=== PATIENT | male | born 1980 | race Caucasian/White ===

== ENCOUNTER 2017-10-25 21:32 | Emergency (ER) | payer OTHER ==
[~2017-10-25] VITALS: Ht 182.9 cm; Wt 97.0 kg
[2017-10-25 21:39] VITALS: Ht 182.9 cm; Wt 97.0 kg
[2017-10-25] MEDS ORDERED: LISI-725 PO (21:55)
[2017-10-25] MEDS ORDERED: LEVO25TA5 PO (21:55)
[2017-10-25] MEDS ORDERED: BISM262C6 PO (21:55)
[2017-10-25] MEDS ORDERED: PRLSR20 PO (21:55)
[2017-10-25 22:11] LABS: BASO % 0.1 %; BASO ABS # 0.01 K/uL (0-0.2); COMPLETE YES; EOS % 1.9 %; HEMATOCRIT 42.7 % (42-52); IG% 0.3 %; LYMPH % 24.6 %; LYMPH ABS # 1.84 K/uL (1.2-3.4); MEAN CELL VOLUME 89.1 fL (80-100); MEAN CORPUSCULAR HEMOGLOBIN 30.9 pg (25-34); MEAN CORPUSCULAR HGB CONC 34.7 g/dl (32-36); MEAN PLATELET VOLUME 9.4 fL (7.4-10.4); NEUT % 65.1 %; PLATELET COUNT 209 K/uL (130-400); RED BLOOD COUNT 4.79 M/uL (4.7-6.1); WHITE BLOOD COUNT 7.48 K/uL (4.8-10.8)
[2017-10-25 22:29] LABS: ALT/SGPT 26 U/L (12-78); AST/SGOT 19 U/L (15-37); BLOOD UREA NITROGEN 17 mg/dl (7-18); BUN/CREATININE RATIO 14.6 (10-20); CALCIUM 8.8 mg/dl (8.5-10.1); CARBON DIOXIDE 29 mmol/L (21-32); CHLORIDE 102 mmol/L (98-107); CREATININE 1.14 mg/dl (0.60-1.40); GLUCOSE 86 mg/dl (70-99); POTASSIUM 3.6 mmol/L (3.5-5.1); SODIUM 137 mmol/L (136-145)
--- NOTE | 2017-10-25 22:32 | DIAGNOSTIC IMAGING REPORT ---
CT OF THE HEAD WITHOUT CONTRAST CLINICAL HISTORY: Syncope. Headache. COMPARISON STUDY: No previous studies for comparison. TECHNIQUE: Helical axial images of the head were obtained without IV contrast. Automated exposure control was utilized for the study. A dose lowering technique was utilized adhering to the principles of ALARA. FINDINGS: No acute intracranial hemorrhage, midline shift or mass effect is present. Ventricular system is unremarkable. Basilar cisterns are patent. There are no extra-axial collections. Donahue-white differentiation is maintained. There is no calvarial fracture. There is a possible left temporal scalp contusion. There is an associated punctate radiodensity and a linear radiodensity. These are indeterminate. IMPRESSION: 1. No acute intracranial findings. 2. No calvarial fracture. Possible left temporal scalp contusion with indeterminate punctate and linear scalp radiodensities. These likely reflect calcifications and are likely chronic however tiny foreign bodies could appear similar. Electronically signed by: Fernando Rao M.D. 10/25/2017 10:30 PM Dictated Date/Time: 10/25/2017 10:25 PM
--- NOTE | 2017-10-25 22:35 | DIAGNOSTIC IMAGING REPORT ---
CT OF THE CERVICAL SPINE WITHOUT CONTRAST CLINICAL HISTORY: Syncope. Neck pain. COMPARISON STUDY: No previous studies for comparison. TECHNIQUE: Helical axial images of the cervical spine were obtained without IV contrast. Sagittal and coronal reconstructions were viewed. A dose lowering technique was utilized adhering to the principles of ALARA. FINDINGS: Alignment of the cervical spine is anatomic. The craniocervical junction is intact. There is no acute cervical spine fracture. There is moderate disc space narrowing and osteophytosis at C6-C7. A corticated ossicle along the inferior aspect of the anterior arch of C1 is chronic. There is no prevertebral edema. IMPRESSION: No acute cervical spine fracture or subluxation. Electronically signed by: Fernando Rao M.D. 10/25/2017 10:34 PM Dictated Date/Time: 10/25/2017 10:30 PM
[2017-10-25 22:40] LABS: ALKALINE PHOSPHATASE 58 U/L (45-117)
[2017-10-26 00:45] VITALS: BP 112/75; PULSE 70; TEMP 36.6; O2SAT 97
--- NOTE | 2017-10-26 05:37 | EMERGENCY ROOM VISIT NOTE ---
History First contact with patient: 21:43 Chief Complaint: SYNCOPE Stated Complaint: STATES HE PASSED OUT Nursing Triage Summary: Patient states he was sitting playing cards when he had a syncopal episode. abraision to left eye brow. History of Chrons, HTN and thyroid disease History of Present Illness The patient is a 37 year old male who presents to the Emergency Room with complaints of syncopal episode tonight. Patient states he's been feeling fatigued for the past 2 weeks. Patient states he was just transferred to this skilled nursing system from another one. He states since arriving there he has not been eating well as he does not like the food. Patient states he was playing cards tonight after dinner and then passed out. Patient felt lightheaded and then he passed out and hit his head. He was evaluated by the skilled nursing doctor and sent here. Patient states he has a headache and some neck discomfort. No other medical complaints. Tetanus is current. Patient denies chest pain, dyspnea, fever, chills, cough, congestion, abdominal pain, vomiting, diarrhea, localized weakness. Patient states he like to be checked for hepatitis. Review of Systems See HPI for pertinent positives & negatives. A total of 10 systems reviewed and were otherwise negative. Past Medical/Surgical History Crohn's disease, hepatitis, hypertension, psoriasis Social History Smoking Status: Current Every Day Smoker Drug Use: none Marital Status: single Occupation Status: other (prisoner) Current/Historical Medications Scheduled Bismuth Subsalicylate (Pepto-Bismol), 2 TAB PO TID Levothyroxine Sodium (Levothyroxine Sodium), 25 MCG PO DAILY Lisinopril (Zestril), 20 MG PO DAILY Omeprazole (Prilosec), 20 MG PO DAILY Allergies Coded Allergies: No Known Allergies (Unverified , 10/25/17) Physical Exam Vital Signs Date Time Temp Pulse Resp B/P (MAP) Pulse Ox O2 Delivery O2 Flow Rate FiO2 10/26/17 00:45 36.6 70 18 112/75 97 Room Air 10/26/17 00:18 76 18 126/81 97 Room Air 142/76 139/81 10/25/17 23:41 36.6 75 18 137/76 97 Room Air 10/25/17 22:35 74 10/25/17 22:28 72 18 134/76 97 Room Air 10/25/17 21:54 Room Air 10/25/17 21:54 Room Air 10/25/17 21:39 36.9 75 18 141/84 97 Room Air Physical Exam VITALS: Vitals are noted on the nurse's note and reviewed by myself. Vital signs stable. GENERAL: White male in [facility], in no acute distress, nondiaphoretic, well- developed well-nourished. SKIN: Left eyebrow superficial abrasion and appears clean The rest of the skin was without rashes, erythema, edema, or bruising. There is no tenting of the skin. Capillary reflex less than 2 seconds. HEAD: Normocephalic atraumatic. EARS: External auditory canals clear, tympanic membranes pearly donahue without erythema or effusion bilaterally. EYES: Pupils equal round and reactive to light and accommodation. Conjunctivae without injection, sclerae without icterus. Extraocular movements intact. NOSE: Patent, turbinates without inflammation or discharge. No sinus tenderness. MOUTH: Mucous membranes moist. Pharynx without erythema or exudate. Uvula midline. Airway patent. Tongue does not deviate. NECK: Supple without nuchal rigidity. No lymphadenopathy. No thyromegaly. Cervical spine is nontender. No JVD. HEART: Regular rate and rhythm without murmurs gallops or rubs. LUNGS: Clear to auscultation bilaterally without wheezes, rales or rhonchi. No dullness to percussion. No retractions or accessory muscle use. ABDOMEN: Positive bowel sounds x 4. Normal tympanic percussion. Soft, nontender, without masses or organomegaly. Bright sign negative. No guarding or rebound tenderness. MUSCULOSKELETAL: No muscle atrophy, erythema, or edema noted. No thoracic or lumbar tenderness on exam. 5 out of 5 strength throughout. NEURO: Patient was alert and oriented to person place and time. Normal sensation to light and sharp touch. No focal neurological deficits. Cranial nerves II-12 grossly intact. No pronator drift. Cerebellar exam intact. Medical Decision & Procedures Laboratory Results 10/25/17 22:00 Red Blood Count 4.79, Mean Corpuscular Volume 89.1, Mean Corpuscular Hemoglobin 30.9, Mean Corpuscular Hemoglobin Concent 34.7, Mean Platelet Volume 9.4, Neutrophils (%) (Auto) 65.1, Lymphocytes (%) (Auto) 24.6, Monocytes (%) (Auto) 8.0, Eosinophils (%) (Auto) 1.9, Basophils (%) (Auto) 0.1, Neutrophils # (Auto) 4.87, Lymphocytes # (Auto) 1.84, Monocytes # (Auto) 0.60, Eosinophils # (Auto) 0.14, Basophils # (Auto) 0.01 10/25/17 22:00 Test 10/25/17 22:00 10/26/17 00:07 White Blood Count 7.48 K/uL (4.8-10.8) Red Blood Count 4.79 M/uL (4.7-6.1) Hemoglobin 14.8 g/dL (14.0-18.0) Hematocrit 42.7 % (42-52) Mean Corpuscular Volume 89.1 fL (80-100) Mean Corpuscular Hemoglobin 30.9 pg (25-34) Mean Corpuscular Hemoglobin Concent 34.7 g/dl (32-36) Platelet Count 209 K/uL (130-400) Mean Platelet Volume 9.4 fL (7.4-10.4) Neutrophils (%) (Auto) 65.1 % Lymphocytes (%) (Auto) 24.6 % Monocytes (%) (Auto) 8.0 % Eosinophils (%) (Auto) 1.9 % Basophils (%) (Auto) 0.1 % Neutrophils # (Auto) 4.87 K/uL (1.4-6.5) Lymphocytes # (Auto) 1.84 K/uL (1.2-3.4) Monocytes # (Auto) 0.60 K/uL (0.11-0.59) Eosinophils # (Auto) 0.14 K/uL (0-0.5) Basophils # (Auto) 0.01 K/uL (0-0.2) RDW Standard Deviation 39.3 fL (36.4-46.3) RDW Coefficient of Variation 12.2 % (11.5-14.5) Immature Granulocyte % (Auto) 0.3 % Immature Granulocyte # (Auto) 0.02 K/uL (0.00-0.02) Anion Gap 6.0 mmol/L (3-11) Est Creatinine Clear Calc Drug Dose 106.1 ml/min Estimated GFR () 94.0 Estimated GFR (Non- 81.1 BUN/Creatinine Ratio 14.6 (10-20) Calcium Level 8.8 mg/dl (8.5-10.1) Total Bilirubin 0.4 mg/dl (0.2-1) Direct Bilirubin < 0.1 mg/dl (0-0.2) Aspartate Amino Transf (AST/SGOT) 19 U/L (15-37) Alanine Aminotransferase (ALT/SGPT) 26 U/L (12-78) Alkaline Phosphatase 58 U/L (45-117) Troponin I < 0.015 ng/ml (0-0.045) Total Protein 7.4 gm/dl (6.4-8.2) Albumin 3.9 gm/dl (3.4-5.0) Thyroid Stimulating Hormone (TSH) 6.590 uIu/ml (0.300-4.500) Hepatitis B Surface Antigen NEG (NEG) Hepatitis C Antibody NEG (NEG) Bedside Troponin I < 0.030 ng/ml (0-0.045) ED Course Prior records/ancillary studies reviewed. Triage Nursing notes reviewed. Additional history obtained from correction officers. The patient's history was concerning for syncope. Differential diagnosis: Etiologies such as vasovagal event, infection, hypoglycemia, electrolyte abnormalities, cardiac sources, intracerebral event, toxicologic, neurologic, as well as others were entertained. Physical examination: Patient was alert, interactive and drinking without difficulties ER treatment provided: By mouth fluids and a turkey sandwich On reassessment the patient felt better. Diagnostics interpretation by me: ECG: Normal sinus, normal intervals, no acute ST-T wave changes. Impression normal sinus rhythm interpreted by myself with a poor baseline The labs revealed negative on 2 greater than 2 hours apart. Mildly elevated TSH Imaging studies: CT OF THE HEAD WITHOUT CONTRAST CLINICAL HISTORY: Syncope. Headache. COMPARISON STUDY: No previous studies for comparison. TECHNIQUE: Helical axial images of the head were obtained without IV contrast. Automated exposure control was utilized for the study. A dose lowering technique was utilized adhering to the principles of ALARA. FINDINGS: No acute intracranial hemorrhage, midline shift or mass effect is present. Ventricular system is unremarkable. Basilar cisterns are patent. There are no extra-axial collections. Donahue-white differentiation is maintained. There is no calvarial fracture. There is a possible left temporal scalp contusion. There is an associated punctate radiodensity and a linear radiodensity. These are indeterminate. IMPRESSION: 1. No acute intracranial findings. 2. No calvarial fracture. Possible left temporal scalp contusion with indeterminate punctate and linear scalp radiodensities. These likely reflect calcifications and are likely chronic however tiny foreign bodies could appear similar. CLINICAL HISTORY: Syncope. Neck pain. COMPARISON STUDY: No previous studies for comparison. TECHNIQUE: Helical axial images of the cervical spine were obtained without IV contrast. Sagittal and coronal reconstructions were viewed. A dose lowering technique was utilized adhering to the principles of ALARA. FINDINGS: Alignment of the cervical spine is anatomic. The craniocervical junction is intact. There is no acute cervical spine fracture. There is moderate disc space narrowing and osteophytosis at C6-C7. A corticated ossicle along the inferior aspect of the anterior arch of C1 is chronic. There is no prevertebral edema. IMPRESSION: No acute cervical spine fracture or subluxation. Electronically signed by: Fernando Rao M.D. This appears to be consistent with syncope with mildly elevated TSH. Patient was neurovascularly and neurologically intact. He had an unremarkable workup as above. He is advised to follow-up with skilled nursing doctor in a few days for further evaluation for syncope and is elevated TSH. Patient had a normal EKG. 2 negative troponins. Stable H&H. He was able to ambulate without difficulties. He ate a full meal while in the ER. By the evaluation outlined above emergent etiologies such as infection, hypoglycemia, electrolyte abnormalities, cardiac sources, intracerebral event, toxicologic, neurologic,as well as others were deemed relatively unlikely. The pt informed about the findings as listed above. All questions were answered and pleased with the treatment. Return instructions were outlined and the patient was discharged in stable condition. Case reviewed by attending Referral: The patient was referred back to their primary care physician for follow-up in 2 to 3 days for a recheck of the current condition. Medical Decision As above Impression Primary Impression: Syncope Departure Information Dispostion Home / Self-Care Condition GOOD Referrals Amilcar BATES (PCP) Forms HOME CARE DOCUMENTATION FORM, IMPORTANT VISIT INFORMATION Patient Instructions Syncope, My [employer] Additional Instructions Your thyroid were slightly elevated today. Recheck this with the family care doctor. Rest and drink plenty of fluids as tolerated. Continue current medications. Return to the ER immediately for worsening or persistent syncope, abdominal pain , vomiting, fevers, chest pains, difficulty breathing, worsening of your condition, or as needed. Follow up with your primary physician in 2-3 days for a recheck of your current condition. Problem Qualifiers Primary Impression: Syncope Syncope type: unspecified Qualified Codes: R55 - Syncope and collapse
== END 2017-10-26 00:46 | disposition home or self-care (01) ==
LOC: C.EDB 21:34 → C.EDC 10-26 00:46
DX: R55 Syncope and collapse (principal); K50.90 Crohn's disease, unspecified, without complications; I10 Essential (primary) hypertension; L40.9 Psoriasis, unspecified; K75.9 Inflammatory liver disease, unspecified; F17.210 Nicotine dependence, cigarettes, uncomplicated; Z79.899 Other long term (current) drug therapy